=== PATIENT | female | born 1985 | race Hispanic/Latino ===

== ENCOUNTER 2024-12-02 16:40 | Emergency (ER) | payer OTHER, SELFPAY ==
[2024-12-02 16:47] VITALS: BP 126/83
[2024-12-02 17:30] LABS: HCG, Serum Qualitative Screen Negative
[2024-12-02 17:35] LABS: ALT (SGPT) 43 U/L (0-35); AST (SGOT) 45 U/L (14-36); Albumin 4.6 g/dl (3.5-5.0); Alkaline Phosphatase 108 U/L (38-126); Blood Urea Nitrogen 7 mg/dl (7-17); Calcium 9.4 mg/dl (8.4-10.2); Carbon Dioxide 24 mmol/L (22-30); Chloride 107 mmol/L (98-107); Glucose 98 mg/dl (70-99); Potassium 4.3 mmol/L (3.5-5.1); Sodium 138 mmol/L (135-145); Total Protein 8.0 g/dl (6.3-8.2); eGFR > 60.00
[2024-12-02 18:29] LABS: Hematocrit 34.6 % (37.0-47.0); Hemoglobin 10.6 g/dL (12.0-16.0); Mean Corp Hgb Conc. 30.6 g/dL (33.0-37.0); Mean Corpuscular Volume 79.0 fL (81.0-99.0); Nucleated Red Blood Cells % 0 %; Platelet Count 376 10^3/uL (130-400); Red Cell Dist. Width 13.3 % (11.5-14.5)
[2024-12-02] MEDS: ANTIVERT 25 MG PO (18:40)
[2024-12-02 19:12] VITALS: BP 124/67
[2024-12-02 20:00] VITALS: BP 81/55
[2024-12-02 20:07] VITALS: BP 102/67
--- NOTE | 2024-12-02 21:45 | ED.GENMED ---
History of Present Illness
General
Chief Complaint: Dizziness
Time Seen by Provider: 12/02/24 17:51
History of Present Illness
History of Present Illness:
39-year-old female with no past medical history presents to the emergency department for evaluation of dizziness that began upon awakening earlier this morning. Worse with certain head movements. She is able to walk but did stumble earlier in the
day and fell to the ground. Denies any dizziness when perfectly still. No vision changes, nausea, or vomiting. Does report a moderate headache as well. Was sent to the ED for CT scan by her primary care physician
Past History
Past History
ED Past Medical History: Psychiatric
ED Past Surgical History: None
Social History
Tobacco: Non-smoker
Alcohol: None
Drug: None
Living: with family
Employment: Employed
Family History
Family History: Negative Diabetes, Early CAD or Sudden
Review of Systems
Review of Systems
Allergies reviewed?: Yes
All Other Systems: ROS reviewed and negative except as documented in HPI and ROS
Phy Exam
Physical Exam
Physical Exam:
GEN: Well appearing, NAD, WDWN
HEENT: Oral mucosa moist, no scleral icterus, no nasal congestion
Cardiac: Regular rate
Lung: No respiratory distress, no tachypnea
MSK: No gross deformity or injuries
Skin: Good color, no pallor or jaundice, no rashes
Neuro: AO x3; CN II-XII grossly intact. BUE strength 5/5 in all cruz, sensation intact and symmetric. BLE strength 5/5 in all cruz, sensation intact and symmetric. Minor horizontal right beating nystagmus with supine head rotation
Psych: Calm, cooperative
Course
Orders/Labs/Results
Orders:
Orders
12/02/24 16:49
Test Result ONCE
12/02/24 16:53
Comprehensive Metabolic Panel Urgent
HCG, Serum Qualitative Screen Urgent
Comment: Notify provider if positive test present
12/02/24 18:20
Complete Blood Count/With Diff Urgent
12/02/24 18:31
Meclizine [Antivert] 25 mg PO NOW STA
12/02/24 20:14
CT Head W/o Iv Contrast Urgent
Comment:
Reason For Exam: dizziness/headache
12/02/24 21:45
Dexamethasone Pf [Decadron] 10 mg PO NOW STA
Abnormal Lab Results
12/02/24 12/02/24
16:53 18:20
Hgb 10.6 L g/dL
(12.0-16.0)
Hct 34.6 L %
(37.0-47.0)
MCV 79.0 L fL
(81.0-99.0)
MCH 24.2 L pg
(27.0-31.0)
MCHC 30.6 L g/dL
(33.0-37.0)
Creatinine 0.5 L mg/dL
(0.6-1.0)
AST 45 H U/L
(14-36)
ALT 43 H U/L
(0-35)
12/02/24 18:20
12/02/24 16:53
Vital Signs
Initial and Last Documented VS:
Initial Vital Signs
Temp Pulse Resp BP Pulse Ox
98 F 74 16 126/83 100
12/02/24 16:47 12/02/24 16:47 12/02/24 16:47 12/02/24 16:47 12/02/24 16:47
Last Documented Vital Signs
Temp Pulse Resp BP Pulse Ox
98 F 62 21 106/57 98
12/02/24 16:47 12/02/24 21:49 12/02/24 21:49 12/02/24 21:49 12/02/24 21:49
MDM/Problems Addressed
MDM/Problems Addressed:
Patient was treated for presumed benign vertigo however given the lack of poor improvement of symptoms and persistent headache a CT was obtained to rule out neoplastic lesion and this was reassuring. Will trial corticosteroids and diazepam for
vertigo therapy
*Pulse Oximetry
SaO2: 100
Oxygen Mode of Delivery: Room air
Patient hypoxic: no
*Critical Care Note
Total Time (30-74mins, 75-104mins- exclusive of procedures): Not Applicable
ED Attending Note
-
Portions of this chart may have been created with voice recognition software.� Occasional wrong word or��sound alike� substitutions may have occurred due to the inherent limitations of voice recognition software.
Discharge Plan
Departure
Patient Disposition: Home (Routine Discharge)
Date of Disposition: 12/02/24
Time of Disposition: 21:45
Patient with high blood pressure during this ER visit?: No
Discharge Problem:
Vertigo
Instructions: Vertigo (a Type of Dizziness) (DC)
Prescriptions:
New
methylprednisolone [Medrol (Niall)] 4 mg tablets,dose pack
See Rx Instructions .ROUTE .COMPLEX Qty: 21 0RF
Rx Instructions:
orally per package directions
diazepam [Valium] 2 mg tablet
2 mg PO TID PRN (Reason: dizziness) Qty: 8 0RF
No Action
B/C Pill
PO . DIRECTED
Diet Pills
DAILY
Referrals:
Kylee Dunham PA [Family Provider, Family Practice]
Interventions
Interventions:
*Risk Screen - Suicide Last Done: 12/02/24 16:47
*General Assessment Last Done: 12/02/24 18:28
*Neglect/Abuse Screening Last Done: 12/02/24 16:47
*ED- Fall Risk Assessment Last Done: 12/02/24 21:46
*ED COVID-19 Vaccine History Last Done: 12/02/24 18:28
*Nursing Disposition Last Done: 12/02/24 21:55
ED- Neurological Assessment Last Done: 12/02/24 18:27
ED- Cardiac Assessment Last Done: 12/02/24 21:55
ED Swallowing Screen Last Done: 12/02/24 18:58
Discharge Date and Time
Discharge Date/Time: 12/02/24 21:59
Print Language: KHMER
[2024-12-02 21:49] VITALS: BP 106/57
[2024-12-02] MEDS: DECADRON 10 MG PO (21:54)
== END 2024-12-02 21:59 | disposition home or self-care (01) ==
LOC: EMR 16:40
PROVIDERS: EMERGENCY PHYSICIAN Emergency Medicine; FAMILY PHYSICIAN Physician Assistant Medical
DX: R42 Dizziness and giddiness (principal); R51.9 Headache, unspecified; W01.0XXA Fall on same level from slipping, tripping and stumbling without subsequent striking against object, initial encounter
CPT/HCPCS: 99284; 70450; 80053; 84703; 85025